=== PATIENT | male | born 1985 | race African-American/Black ===

== ENCOUNTER 2017-04-24 19:59 | Emergency (ER) | payer OTHER ==
--- NOTE | 2017-04-24 21:12 | PDOC ---
Rapid Medical Evaluation Time Seen by Provider: 04/24/17 21:09 Medical Evaluation: I have performed a brief in-person evaluation of this patient. The patient presents with a chief complaint of: tactile fever yesterday - resolved, slight runny nose, light cough Pertinent physical exam findings: patient is well appearing and afebrile I have ordered the followinmg of Motrin The patient will proceed to the ED for further evaluation.
[2017-04-24] MEDS ORDERED: IBUPROFEN 400 MG TABLET (FP) PO ONE (21:13)
[2017-04-24 21:22] VITALS: BP 134/85; PULSE 70; TEMP 98.4; BMI 24.7
== END 2017-04-24 23:23 | disposition left against medical advice (07) ==
LOC: JER 19:59
DX: Z53.21 Procedure and treatment not carried out due to patient leaving prior to being seen by health care provider (principal)
CPT/HCPCS: 99281-25

== ENCOUNTER 2020-01-05 18:05 | Emergency (ER) | payer OTHER ==
[2020-01-05 18:10] VITALS: BP 148/88; PULSE 69; TEMP 98.7; BMI 25.1
--- NOTE | 2020-01-05 18:27 | PDOC ---
History of Present Illness - General History Source: Patient - History of Present Illness Timing/Duration: reports: other (1 wek ago) Abdominal Pain Onset Location: reports: other (left mid abd) <PabloTomeka - Last Filed: 01/05/20 18:52> <Susan Wood - Last Filed: 01/06/20 08:46> - General Chief Complaint: Pain, Acute Stated Complaint: PAIN/DISCOMFORT/LL/QUADRANT Time Seen by Provider: 01/05/20 18:19 Past History - Medical History COPD: No - Immunization History Immunization Up to Date: No - Psycho-Social/Smoking History Smoking History: Never smoked - Substance Abuse Hx (Audit-C & DAST Scrn) How often the patient has a drink containing alcohol: Never Score: In Men: 4 or > Positive; In Women: 3 or > Positive: 0 Screen Result (Pos requires Nsg. Audit-10AR): Negative In the last yr the pt used illegal drug/Rx for NonMed reason: No Score: Yes response is considered Positive: 0 Screen Result (Positive result requires Nsg. DAST-10): Negative <TuvaluanTomeka - Last Filed: 01/05/20 18:52> <Susan Wood - Last Filed: 01/06/20 08:46> - Medical History Allergies/Adverse Reactions: Allergies Allergy/AdvReac Type Severity Reaction Status Date / Time No Known Allergies Allergy Verified 01/05/20 18:07 Home Medications: Ambulatory Orders Dm/Pseudoephed/Acetaminoph/Cpm [Genia-Andre Plus-D Sinus-Cold] 1 each PO ASDIR 04/24/17 Review of Systems - Review of Systems Able to Perform ROS?: Yes Constitutional: No: Chills, Fever ABD/GI: No: Blood Streaked Bowels, Constipated, Diarrhea, Nausea, Rectal Bleeding, Vomiting, Tarry Stools : No: Dysuria, Discharge, Flank Pain, Hematuria, Testicular Swelling, Testicular Pain <Tomeka Shah - Last Filed: 01/05/20 18:52> *Physical Exam - Vital Signs Last Vital Signs Temp Pulse Resp BP Pulse Ox 98.7 F 69 20 148/88 100 01/05/20 18:07 01/05/20 18:07 01/05/20 18:07 01/05/20 18:07 01/05/20 18:07 - Physical Exam General Appearance: Yes: Appropriately Dressed. No: Apparent Distress HEENT: positive: Normal Voice Neck: positive: Supple Respiratory/Chest: negative: Respiratory Distress Gastrointestinal/Abdominal: positive: Normal Bowel Sounds, Soft. negative: Tender, Distended, Guarding, Rebound Musculoskeletal: negative: CVA Tenderness Integumentary: positive: Dry, Warm Neurologic: positive: Fully Oriented, Alert, Normal Mood/Affect <Tomeka Shah - Last Filed: 01/05/20 18:52> - Vital Signs Last Vital Signs Temp Pulse Resp BP Pulse Ox 98.7 F 69 20 148/88 100 01/05/20 18:07 01/05/20 18:07 01/05/20 18:07 01/05/20 18:07 01/05/20 18:07 <Susan Wood - Last Filed: 01/06/20 08:46> Medical Decision Making - Medical Decision Making 01/05/20 18:20 34-year-old male, denies any past medical history, here with L mid abdominal pain x 1 week that started after "working out my abs". States after not working out for a while, started working out again. Pain feels like "a knot", tender to the touch, intermittent and lasts for seconds. No pain currently. No nausea, vomiting, fever, chills, dysuria, testes pain/swelling or change in bowel movements. see exam Abd pain after working out x 1 week No other sxs Possible MSK given hx Stable and in NAD w/ benign abd No intervention needed today as d/w pt To rest and return for persistent/worsening sxs <Tomeka Shah - Last Filed: 01/05/20 18:52> - Medical Decision Making I reviewed the case with the mid-level practitioner and agree with the mid-level practitioner's assessment, diagnosis and disposition. <Susan Wood - Last Filed: 01/06/20 08:46> Discharge - Discharge Information Problems reviewed: Yes <Tomeka Shah - Last Filed: 01/05/20 18:52> <Susan Wood - Last Filed: 01/06/20 08:46> - Discharge Information Clinical Impression/Diagnosis: Abdominal wall pain Condition: Good Disposition: HOME - Follow up/Referral Referrals: Corey Muhammad MD [Primary Care Provider] - - Patient Discharge Instructions Additional Instructions: The cause of your abd pain may be muscular. Rest, take motrin or tylenol as needed for pain If pain persists and/or worsen, please return to ER
--- OUTSIDE RECORDS SUMMARY | 2020-01-05 18:46 | XMS ---
:1985 [facility] Support Name Relationship Address Phone ALLIED SECURITY [place] [address] CAROLINE KELLY MOTHER [address] [place] [address] Re-disclosure Warning The records that you are about to access may contain information from federally- assisted alcohol or drug abuse programs. If such information is present, then the following federally mandated warning applies: This information has been disclosed to you from records protected by federal confidentiality rules (42 CFR part 2). The federal rules prohibit you from making any further disclosure of this information unless further disclosure is expressly permitted by the written consent of the person to whom it pertains or as otherwise permitted by 42 CFR part 2. A general authorization for the release of medical or other information is NOT sufficient for this purpose. The Federal rules restrict any use of the information to criminally investigate or prosecute any alcohol or drug abuse patient.The records that you are about to access may contain highly sensitive health information, the redisclosure of which is protected by Article 27-F of the [facility] Public Health law. If you continue you may haveaccess to information: Regarding HIV / AIDS; Provided by facilities licensed or operated by the [facility] Office of Mental Health; or Provided by the [facility] Office for People With Developmental Disabilities. If such information is present, then the following [facility] mandated warning applies: This information has been disclosed to you from confidential records which are protected by state law. State law prohibits you from making any further disclosure of this information without the specific written consent of the person to whom it pertains, or as otherwise permitted by law. Any unauthorized further disclosure in violation of state law may result in a fine or fci sentence or both. A general authorization for the release of medical or other information is NOT sufficient authorization for further disclosure. Insurance Providers Payer name Policy type Policy ID Covered Covered alliance party's Policy P tana / Coverage alliance party ID relationship to Kendall Inf ormation type kendall NICK [id number] [address] [facility] NON CAP
== END 2020-01-05 18:51 | disposition home or self-care (01) ==
LOC: JER 18:05
DX: R10.9 Unspecified abdominal pain (principal)
CPT/HCPCS: 99282-25

== ENCOUNTER 2020-01-09 12:08 | Emergency (ER) | payer OTHER ==
[2020-01-09 12:15] VITALS: BP 138/90; PULSE 63; TEMP 98; BMI 25.1
--- NOTE | 2020-01-09 12:21 | PDOC ---
History of Present Illness - General Chief Complaint: Pain, Acute Stated Complaint: ABD PAIN Time Seen by Provider: 01/09/20 12:18 - History of Present Illness Initial Comments: 01/09/20 13:57 34yo healthy M presents with intermittent gonadal pain x 1month. He got kicked in the testicles accidentally 1month ago while playing basketball. That evening, he had intercourse with his ex-partner. He presents today requesting exam and STI testing. Denies discharge, dysuria, pain with erection, hematuria, h/o kidney stones Past History - Medical History Allergies/Adverse Reactions: Allergies Allergy/AdvReac Type Severity Reaction Status Date / Time No Known Allergies Allergy Verified 01/09/20 12:13 Home Medications: Ambulatory Orders NK [No Known Home Medication] 01/09/20 COPD: No - Immunization History Immunization Up to Date: No - Psycho-Social/Smoking History Smoking History: Never smoked - Substance Abuse Hx (Audit-C & DAST Scrn) How often the patient has a drink containing alcohol: Never Score: In Men: 4 or > Positive; In Women: 3 or > Positive: 0 Screen Result (Pos requires Nsg. Audit-10AR): Negative Review of Systems - Review of Systems Able to Perform ROS?: Yes Is the patient limited Azeri proficient: No Constitutional: No: Fever, Malaise HEENTM: No: Recent change in vision, Throat Pain, Throat Swelling Respiratory: No: Cough, Shortness of Breath Cardiac (ROS): No: Chest Pain, Edema, Lightheadedness ABD/GI: No: Abdominal Distended, Constipated, Nausea, Rectal Bleeding, Vomiting, Abdominal cramping : Yes: Pain. No: Burning, Dysuria, Discharge, Frequency, Flank Pain, Hematuria Musculoskeletal: No: Back Pain, Joint Swelling, Muscle Pain, Muscle Weakness Integumentary: No: Pallor, Rash Neurological: No: Headache, Numbness Endocrine: No: Symptoms Reported Hematologic/Lymphatic: No: Symptoms Reported All Other Systems: Reviewed and Negative *Physical Exam - Vital Signs Last Vital Signs Temp Pulse Resp BP Pulse Ox 98.0 F 63 18 138/90 100 01/09/20 12:13 01/09/20 12:13 01/09/20 12:13 01/09/20 12:13 01/09/20 12:13 - Physical Exam General Appearance: Yes: Nourished, Appropriately Dressed. No: Apparent Distress HEENT: positive: EOMI, Normal Voice Neck: positive: Trachea midline, Supple Respiratory/Chest: positive: Lungs Clear, Normal Breath Sounds. negative: Respiratory Distress Cardiovascular: positive: Regular Rhythm, Regular Rate Gastrointestinal/Abdominal: positive: Normal Bowel Sounds, Flat, Soft. negative: Organomegaly, Pulsatile Mass, Increased Bowel Sounds, Protuberent, Distended, Guarding, Rebound, Tenderness, Hepatomegaly, Spleenomegaly Male Genitalia: positive: normal genitalia. negative: discharge, testicular tenderness, testicular mass, epididymus tender, inguinal hernia, hernia, CVAT Musculoskeletal: positive: Normal Inspection. negative: CVA Tenderness Extremity: positive: Normal Capillary Refill, Normal Inspection, Normal Range of Motion Integumentary: positive: Normal Color, Dry, Warm Neurologic: positive: Fully Oriented, Alert, Motor Strength 5/5 Medical Decision Making - Medical Decision Making 01/09/20 14:01 34yo M reports testicular pain with no findings of PE suggesting pathology. UA + US scrotum + STI panel (GC, syphilis, HIV) 01/09/20 14:47 US read: small R hydrocele present. no other pathology. Will offer tylenol and DC w/ f/u urology. Discharge - Discharge Information Problems reviewed: Yes Clinical Impression/Diagnosis: Hydrocele Qualifiers: Hydrocele type: unspecified Qualified Code(s): N43.3 - Hydrocele, unspecified - Admission No - Follow up/Referral Referrals: Corey Muhammad MD [Primary Care Provider] - Elder Borden MD [Staff Physician] - - Patient Discharge Instructions Additional Instructions: You came to the ED with testicular pain. We ultrasounded your testicles. There is a small hydrocele present on your right side but otherwise no pathology. Follow up with Dr. Borden (urology) within 48 hours of leaving the ED today. Come back if you develop any worsening symptoms. - Post Discharge Activity
--- OUTSIDE RECORDS SUMMARY | 2020-01-09 12:56 | XMS ---
:1985 Author Organization [facility] Support Name Relationship Address Phone ALLIED [employer]URITY [place] [address] [address] [address] [facility] [address] [place] [address] Re-disclosure Warning The records that you are [...] is protected by Article 27-F of the [facility] Public Health law. If you continue you may haveaccess to information: Regarding HIV / AIDS; Provided by facilities licensed or operated by the [facility] Office of Mental Health; or Provided by the [facility] Office for People With Developmental Disabilities. If such information is present, then the following [facility] mandated warning applies: This information has been [...] law may result in a fine or intermediate sentence or both. A general authorization for the release of medical or other information is NOT sufficient authorization for further disclosure. Insurance Providers Payer name Policy type Policy ID Covered Covered democrat's Policy P tana / Coverage democrat ID relationship to Kendall Inf ormation type kendall NICK [id number] [address] [facility] NON CAP
[2020-01-09 13:53] LABS: PH,URINE 5.5 (5.0-8.0); URINE APPEARANCE CLEAR; URINE BILIRUBIN NEGATIVE (NEGATIVE); URINE COLOR YELLOW; URINE GLUCOSE (UA) NEGATIVE (NEGATIVE); URINE KETONE TRACE (NEGATIVE); URINE LEUK ESTERASE NEGATIVE (NEGATIVE); URINE NITRITE NEGATIVE (NEGATIVE); URINE PROTEIN NEGATIVE (NEGATIVE); URINE UROBILINOGEN 0.2 mg/dL (0.2-1.0)
--- NOTE | 2020-01-09 14:24 | PDOC ---
Documentation entered by Giselle Mendosa SCRIBE, acting as scribe for Susan Wood MD. Susan Wood MD: This documentation has been prepared by the scribe, Giselle Golden SCRIBE, under my direction and personally reviewed by me in its entirety. I confirm that the documentation accurately reflects all work, treatment, procedures, and medical decision making performed by me. Attending Attestation - Resident Resident Name: Gabriel Lo - ED Attending Attestation I have performed the following: I have examined & evaluated the patient, The case was reviewed & discussed with the resident, I agree w/resident's findings & plan, Exceptions are as noted - HPI HPI: 34 year old male no prior PMH presents with L testicular pain for 1 month. He states he was kicked 1 month ago while playing basketball. However, he also had intercourse with a former partner that same night and endorses concerns about STIs. Denies dysuria, hematuria. He previously had back pain which resolved spontaneously. Denies N/V/D. - Physicial Exam PE: GENERAL: Awake, alert, and fully oriented, in no acute distress HEAD: No signs of trauma EYES: PERRLA, EOMI, sclera anicteric, conjunctiva clear ENT: Auricles normal inspection, hearing grossly normal, nares patent, oropharynx clear without exudates. Moist mucosa NECK: Normal ROM, supple, no lymphadenopathy, JVD, or masses LUNGS: Breath sounds equal, clear to auscultation bilaterally. No wheezes, and no crackles HEART: Regular rate and rhythm, normal S1 and S2, no murmurs, rubs or gallops ABDOMEN: Soft, nontender, normoactive bowel sounds. No guarding, no rebound. No masses. No CVAT EXTREMITIES: Normal range of motion, no edema. No clubbing or cyanosis. No cords, erythema, or tenderness NEUROLOGICAL: Cranial nerves II through XII grossly intact. Normal speech, normal gait. Motor and sensation intact SKIN: Warm, dry, normal turgor, no rashes or lesions noted. - Medical Decision Making Pt previously with groin pain, now with testicular pain on L side. No N/V/D, no urinary symptoms. Poss kidney stone that passed, as his symptoms improved spontaneously. Will obtain testicular sono to r/o torsion, epididymitis. Will test for HIV, syphilis, and GC/Chlamydia. Discharge - Discharge Information Problems reviewed: Yes Clinical Impression/Diagnosis: Hydrocele Qualifiers: Hydrocele type: unspecified Qualified Code(s): N43.3 - Hydrocele, unspecified Condition: Guarded Disposition: HOME - Follow up/Referral Referrals: Elder Borden MD [Staff Physician] - Corey Muhammad MD [Primary Care Provider] - - Patient Discharge Instructions Additional Instructions: You came to the ED with testicular pain. We ultrasounded your testicles. There is a small hydrocele present on your right side but otherwise no pathology. Follow up with Dr. Borden (urology) within 48 hours of leaving the ED today. Come back if you develop any worsening symptoms. - Post Discharge Activity
[2020-01-09] MEDS ORDERED: KETOROLAC TROMETHAMINE 30 MG/1 ML VIAL IM ONE (14:59)
[2020-01-09] MEDS ORDERED: KETOROLAC TROMETHAMINE 15 MG/ML VIAL ONE (15:13)
== END 2020-01-09 15:21 | disposition home or self-care (01) ==
LOC: JER 12:08
PROC: 3E0233Z Introduction of Anti-inflammatory into Muscle, Percutaneous Approach (ICD-10-PCS; principal; 2020-01-09)
DX: N43.3 Hydrocele, unspecified (principal)
CPT/HCPCS: 36415; 76870-TC; 81003; 86780; 87389; 87491; 87591; 99284-25